=== PATIENT | male | born 1955 | race Asian ===

== ENCOUNTER 2025-03-24 22:27 | Emergency (ER) | payer OTHER, MEDICARE, MEDICAID ==
[~2025-03-24] VITALS: Ht 162.6 cm; Wt 68.6 kg
[2025-03-24 22:43] VITALS: O2SAT 100
[2025-03-25] MEDS: IBUPROFEN 800MG TABLET PO ONE (01:06)
[2025-03-25] MEDS ORDERED: IBUP-2030 MT (02:36)
[2025-03-25 02:48] VITALS: BP 149/75; PULSE 64; RESP 18; TEMP 36.7; O2SAT 98
== END 2025-03-25 02:50 | disposition home or self-care (01) ==
LOC: ER 22:27
DX: S30.12XA Contusion of groin, initial encounter (principal); M25.551 Pain in right hip; M25.552 Pain in left hip; N40.0 Benign prostatic hyperplasia without lower urinary tract symptoms; V89.2XXA Person injured in unspecified motor-vehicle accident, traffic, initial encounter; Y93.89 Activity, other specified; Y92.410 Unspecified street and highway as the place of occurrence of the external cause; Y99.8 Other external cause status
CPT/HCPCS: 74176; 99284